=== PATIENT | female | born 1950 | race Two or more races ===

== ENCOUNTER 2018-10-23 09:48 | Outpatient (CLI) | payer OTHER | END 2018-10-23 15:11 | disposition home or self-care (01) | LOC: RX STUDY 09:48 | DX: N39.41 Urge incontinence (principal); N81.11 Cystocele, midline | CPT/HCPCS: 51600; 74455; Q9958 ==

== ENCOUNTER 2024-10-05 14:00 | Emergency (ER) | payer OTHER ==
[~2024-10-05] VITALS: Ht 149.9 cm; Wt 70.8 kg
[2024-10-05] MEDS ORDERED: KETOROLAC TROMETHAMINE 60 MG VIAL IM ONE (16:30)
== END 2024-10-05 18:44 | disposition home or self-care (01) ==
LOC: ER 14:02
DX: S60.00XA Contusion of unspecified finger without damage to nail, initial encounter (principal); X58.XXXA Exposure to other specified factors, initial encounter; Y93.89 Activity, other specified; Y92.89 Other specified places as the place of occurrence of the external cause; Y99.8 Other external cause status; I10 Essential (primary) hypertension; Z88.0 Allergy status to penicillin; Z88.1 Allergy status to other antibiotic agents
CPT/HCPCS: 73130; 96372; 99283; J1885